=== PATIENT | female | born 1980 | race Caucasian/White ===

== ENCOUNTER 2021-12-25 14:51 | Outpatient (CLI) | payer BC | END 2021-12-25 14:52 | disposition home or self-care (01) | LOC: CSHMAMMO 14:51 | PROVIDERS: ATTEND Obstetrics & Gynecology | DX: Z12.31 Encounter for screening mammogram for malignant neoplasm of breast (principal) | CPT/HCPCS: 77063; 77067 ==

== ENCOUNTER 2023-05-22 14:54 | Outpatient (CLI) | payer BC | END 2023-05-22 14:55 | disposition home or self-care (01) | LOC: CSHMAMMO 14:54 | PROVIDERS: ATTEND Obstetrics & Gynecology | DX: Z12.31 Encounter for screening mammogram for malignant neoplasm of breast (principal) | CPT/HCPCS: 77063; 77067 ==

== ENCOUNTER 2024-05-24 12:32 | Outpatient (CLI) | payer BC | END 2024-05-24 12:33 | disposition home or self-care (01) | LOC: CSHMAMMO 12:32 | PROVIDERS: ATTEND Obstetrics & Gynecology | DX: Z12.31 Encounter for screening mammogram for malignant neoplasm of breast (principal) | CPT/HCPCS: 77067 ==